=== PATIENT | female | born 1950 | race Caucasian/White ===

== ENCOUNTER 2019-02-24 07:37 | Inpatient (IN) | payer MEDICARE, OTHER ==
[2019-02-21 10:49] VITALS: BMI 38.0
[2019-02-24 08:38] LABS: #Eosinphils 0.1 thou/uL (0.0-0.7); #Monocytes 0.5 thou/uL (0.11-0.59); #Neutrophils 2.4 thou/uL (1.40-6.50); %Basophils 0.7 % (0.0-1.0); %Eosinophils 2.6 % (0.0-10.0); %Lymphocytes 39.7 % (21.0-51.0); %Monocytes 10.1 % (0.0-10.0); %Neutrophils 46.9 % (42.0-75.0); Hemoglobin 13.5 g/dL (12.0-16.0); Mean Corpuscular HGB CONC 33.8 g/dL (32.0-36.0); Mean Corpuscular Hemoglobin 32.6 pg (27.0-31.0); Mean Corpuscular Volume 96.5 fL (78.0-98.0); Mean Platelet Volume 8.3 fL (7.4-10.4); Platelet Count 243 thou/uL (130-400); RBC Distribution Width 10.8 % (11.5-14.5); Red Blood Cell (RBC) Count 4.14 mill/uL (4.20-5.40)
[2019-02-24 08:48] LABS: INR-International Normal Ratio 0.9; PTT 29.7 SEC (22.9-36.1); Prothrombin Time 12.5 SEC (12.0-14.7)
[2019-02-24 09:04] LABS: Anion Gap 13 mmol/L (10-20); BUN (Urea Nitrogen) 20 mg/dL (9.8-20.1); Calc. Creatinine Clearance 85 mL/min (70-130); Calcium 9.4 mg/dL (7.8-10.44); Carbon Dioxide 22 mmol/L (23-31); Chloride 108 mmol/L (98-107); Estimated GFR-MDRD 58; Glucose 95 mg/dL (80-115); Potassium 4.4 mmol/L (3.5-5.1); Sodium 139 mmol/L (136-145)
[2019-02-24] MEDS ORDERED: Sodium Chloride 0.9% 10 ML ONE (09:32)
[2019-02-24] MEDS ORDERED: Fentanyl 100 MCG/2 ML VIAL ONE ×4 (09:52→12:27)
[2019-02-24] MEDS ORDERED: Labetalol HCl 100 MG/20 ML VIAL ONE (11:04)
[2019-02-24] MEDS ORDERED: Promethazine HCl 25 MG/ML VIAL IM PRN ×2 (11:05→11:15)
[2019-02-24] MEDS ORDERED: Ondansetron HCl/PF 4 MG/2 ML Vial IVP PRN (11:05)
[2019-02-24] MEDS ORDERED: Promethazine HCl 25 MG/ML VIAL SLOW IVP PRN (11:05)
[2019-02-24] MEDS ORDERED: Labetalol HCl 100 MG/20 ML VIAL SLOW IVP PRN (11:06)
[2019-02-24] MEDS ORDERED: hydrALAZINE 20 MG/ML VIAL SLOW IVP PRN (11:06)
[2019-02-24] MEDS ORDERED: Milk Of Magnesia 30 ML UDCUP PO PRN (11:15)
[2019-02-24] MEDS ORDERED: Promethazine 25 MG TAB PO PRN (11:15)
[2019-02-24] MEDS ORDERED: Promethazine HCl 12.5 MG SUPP PR PRN (11:15)
[2019-02-24] MEDS ORDERED: diphenhydrAMINE 25 MG CAP PO PRN (11:15)
[2019-02-24] MEDS ORDERED: traMADol HCl 50 MG TAB PO PRN ×2 (11:15)
[2019-02-24] MEDS ORDERED: Mag-Al 1200 mg/1200 mg/30 ML UDCUP PO PRN (11:15)
[2019-02-24] MEDS ORDERED: Ondansetron PF 4 MG/2 ML Vial IVP PRN (11:15)
[2019-02-24] MEDS ORDERED: hydrALAZINE 20 MG/ML VIAL ONE (11:15)
[2019-02-24] MEDS ORDERED: Morphine 4 MG/ML VIAL SLOW IVP PRN (11:15)
[2019-02-24] MEDS ORDERED: Acetaminophen/Codeine 30-300mg Tablet PO PRN (11:15)
[2019-02-24] MEDS ORDERED: diphenhydrAMINE 50 MG/ML VIAL IVP PRN (11:15)
--- NOTE | 2019-02-24 11:42 | OP ---
DATE OF PROCEDURE: 02/24/2019 MEDIA MANAGER: Bayron Horton PA-C PROCEDURE PERFORMED: Anterior cervical diskectomy C5-C6 and C6-C7, interbody arthrodesis, intervertebral biomechanical device, local morselized autograft, demineralized bone matrix, anterior titanium instrumentation C5-C6 and C6-C7. DESCRIPTION OF PROCEDURE: The patient was brought to the operation room and intubated. She was positioned supine with the head in modest extension on a gel-filled donut. An incision was made in the right precervical area and dissected medial to the sternocleidomastoid muscle, identified the anterior cervical spine and the level was confirmed by x-ray. We placed distraction between C5 and C7, debrided the anterior osteophytes and the intervertebral disks, completely decompressed the neural elements. Next, the bony endplates were decorticated for the purpose of arthrodesis and appropriate-sized intervertebral biomechanical PEEK device was brought in the field. It was filled with demineralized bone matrix, local morselized autograft, and tapped in place securely at C5-C6 and C6-C7. Next, an anterior plate was brought into the field and secured to C5, C6, and C7 using two 14-mm screws at each level. The wound was then extensively irrigated and MAC hemostasis was secured and the wound was closed in anatomic layers over drain. Job ID: [id number]
[2019-02-24] MEDS: Sodium Chloride 0.9% 1,000 ML IV SCH ×2 (13:23→18:30)
[2019-02-24] MEDS: Acetaminophen/Codeine 30-300mg Tablet PO PRN ×3 (14:06→23:55)
[2019-02-24] MEDS ORDERED: PROPOFOL 200 MG/20 ML VIAL ONE (14:53)
[2019-02-24] MEDS ORDERED: Ondansetron PF 4 MG/2 ML Vial ONE (14:53)
[2019-02-24] MEDS ORDERED: Rocuronium Bromide 10 MG/ML (10ML VIAL) ONE (14:53)
[2019-02-24] MEDS ORDERED: Lidocaine 1% PF 5 ML VIAL ONE (14:53)
[2019-02-24] MEDS ORDERED: Glycopyrrolate 0.2 MG/ML 5 ML SYRINGE ONE (14:53)
[2019-02-24] MEDS ORDERED: Dexamethasone 20 MG/5 ML VIAL ONE (14:53)
--- NOTE | 2019-02-24 15:20 | EKG ---
Test Reason : PREOP Blood Pressure : / mmHG Vent. Rate : 053 BPM Atrial Rate : 053 BPM P-R Int : 150 ms QRS Dur : 082 ms QT Int : 402 ms P-R-T Axes : 045 014 023 degrees QTc Int : 377 ms Sinus bradycardia with sinus arrhythmia Otherwise normal ECG No previous ECGs available Confirmed by DR. Mikhail BROTHERS ([id number]) on 02/24/2019 3:19:26 PM Referred By: MAXIMILIANO Confirmed By:DR. Mikhail BROTHERS
[2019-02-24] MEDS ORDERED: Lisinopril 20 MG TAB PO SCH (15:45)
[2019-02-24] MEDS: CEFAZOLIN 2 GM in Premix Bag 1 BAG IVPB SCH (18:01)
[2019-02-24] MEDS: tiZANidine HCl 4 MG TAB PO PRN ×2 (18:01→23:56)
--- NOTE | 2019-02-24 21:45 | PDOC.HOSPP ---
- Subjective Encounter Date: 02/24/19 Encounter Time: 19:30 Subjective: Patient seen and examined for med mngt. Pain over the surgical site. No CP or SOB. No new complaints. - Objective Vital Signs & Weight: Vital Signs (12 hours) Temp Pulse Resp BP BP Pulse Ox 02/24/19 20:02 98.4 F 100 16 148/78 H 94 L 02/24/19 20:00 94 L 02/24/19 18:01 93 186/81 H 02/24/19 17:10 153/77 H 02/24/19 15:51 178/82 H 02/24/19 12:45 97.5 F L 80 18 149/78 H 92 L Weight Weight 208 lb I&O: 02/23/19 02/24/19 02/25/19 06:59 06:59 06:59 Intake Total 975 Output Total 40 Balance 935 Result Diagrams: 02/24/19 08:17 02/24/19 08:17 Hospitalist ROS - Review of Systems Respiratory: denies: cough, dry, shortness of breath, hemoptysis, SOB with excertion, pleuritic pain, sputum, wheezing, other Cardiovascular: denies: chest pain, palpitations, orthopnea, paroxysmal noc. dyspnea, edema, light headedness, other - Medication Medications: Active Medications Generic Name Dose Route Start Last Admin Trade Name Freq PRN Reason Stop Dose Admin Acetaminophen/Codeine Phosphate 2 tab 02/24/19 11:15 02/24/19 19:13 Tylenol #3 PO 2 tab Q3H PRN Administration PAIN (4-6) Hydralazine HCl 10 mg 02/24/19 11:06 02/24/19 18:01 Apresoline SLOW IVP 10 mg Q15MIN PRN Administration Blood Pressure Sodium Chloride 1,000 mls @ 75 mls/hr 02/24/19 11:15 02/24/19 18:30 Normal Saline 0.9% IV 1,000 mls .[id number] ANDREAS Administration Cefazolin Sodium/Dextrose 2 gm 50 mls @ 100 mls/hr 02/24/19 17:00 02/24/19 18 :01 / Device IVPB 50 mls Q8H ANDREAS Administration Tizanidine HCl 4 mg 02/24/19 11:15 02/24/19 18:01 Zanaflex PO 4 mg Q6H PRN Administration MUSCLE SPASM - Exam General Appearance: NAD Heart: RRR, no rubs Respiratory: CTAB, no ronchi Gastrointestinal: soft, non-tender, no palpable masses Extremities: 2+ LE edema Hosp A/P (1) HTN (hypertension) Code(s): I10 - ESSENTIAL (PRIMARY) HYPERTENSION Status: Acute (2) Neuropathy Code(s): G62.9 - POLYNEUROPATHY, UNSPECIFIED Status: Acute (3) Obesity (BMI 30-39.9) Code(s): E66.9 - OBESITY, UNSPECIFIED Status: Acute (4) Statin intolerance Code(s): Z78.9 - OTHER SPECIFIED HEALTH STATUS Status: Acute (5) Venous insufficiency Code(s): I87.2 - VENOUS INSUFFICIENCY (CHRONIC) (PERIPHERAL) Status: Acute (6) Chronic diastolic heart failure Code(s): I50.32 - CHRONIC DIASTOLIC (CONGESTIVE) HEART FAILURE Status: Acute (7) CAD (coronary artery disease) Code(s): I25.10 - ATHSCL HEART DISEASE OF [place] CORONARY ARTERY W/O ANG PCTRS Status: Acute (8) Diverticulosis Code(s): K57.90 - DVRTCLOS OF INTEST, PART UNSP, W/O PERF OR ABSCESS W/O BLEED Status: Acute - Plan plan discussed w/ family, DVT proph w/SCDs Cont Lisinopril ASA/Plavix on hold per NSG Full code. DPOA - spouse
[2019-02-25] MEDS: CEFAZOLIN 2 GM in Premix Bag 1 BAG IVPB SCH
[2019-02-25] MEDS ORDERED: Dexamethasone 4 mg/ml Vial SLOW IVP SCH (06:00)
--- NOTE | 2019-02-25 06:09 | PRG ---
DATE OF SERVICE: 02/25/2019 SUBJECTIVE: The patient is a 68-year-old female, status post C5-C7 ACDF. Following the surgery, she was transitioned to the Med/Surg floor. She has had difficulty with postop dysphagia since the surgery. She is able to tolerate a small amount of p.o. liquids, but has been unable to thus far tolerate solid food. She does have a DA drain in place and only had 10 mL of serosanguineous fluid out overnight. Her pain is otherwise well controlled with p.o. medications, she is voiding appropriately and ambulating back and forth from the bathroom. OBJECTIVE: On exam this morning, the patient is sitting up, awake, alert, in no acute distress. She has free active range of motion of all extremities, no focal motor weakness. Her incision is clean, dry, intact. It is soft. She has a small amount of serosanguineous fluid in the bulb. PLAN: We will plan to treat the dysphagia with 6 mg of IV Decadron once. I have also ordered Cepacol lozenges. We will continue to advance her diet today. I anticipate that this will improve with time. We will also continue to mobilize the patient and I anticipate home in the next day or 2. Job ID: [id number]
[2019-02-25] MEDS: Sodium Chloride 0.9% 1,000 ML IV SCH (08:43)
[2019-02-25] MEDS: Cepastat Lozenges 1 LOZ PO PRN ×3 (10:03→17:45)
[2019-02-25] MEDS ORDERED: Melatonin 3 MG TAB PO PRN (13:32)
[2019-02-25] MEDS: Gabapentin 300 MG CAP PO SCH (16:51)
[2019-02-25] MEDS: Lisinopril 20 MG TAB PO SCH (20:49)
[2019-02-25] MEDS ORDERED: Gabapentin 400 MG CAP PO SCH (21:00)
--- NOTE | 2019-02-25 21:47 | PDOC.HOSPP ---
- Subjective Encounter Date: 02/25/19 Encounter Time: 12:00 Subjective: Patient seen and examined for med mngt.Difficulty swallowing. No fever/chills or CP. No new complaints. No overnight events - Objective Vital Signs & Weight: Vital Signs (12 hours) Temp Pulse Resp BP BP BP Pulse Ox 02/25/19 20:49 150/71 H 02/25/19 20:00 98.5 F 82 16 150/71 H 96 02/25/19 15:38 98.1 F 79 15 148/77 H 94 L 02/25/19 11:54 97.4 F L 76 18 148/71 H 97 Weight Weight 208 lb I&O: 02/24/19 02/25/19 02/26/19 06:59 06:59 06:59 Intake Total 975 1750 Output Total 50 Balance 925 1750 Result Diagrams: 02/24/19 08:17 02/24/19 08:17 Hospitalist ROS - Review of Systems Cardiovascular: denies: chest pain, palpitations, orthopnea, paroxysmal noc. dyspnea, edema, light headedness, other Gastrointestinal: denies: nausea, vomitting, abdominal pain, diarrhea, constipation, melena, hematochezia, other - Medication Medications: Active Medications Generic Name Dose Route Start Last Admin Trade Name Freq PRN Reason Stop Dose Admin Acetaminophen/Codeine Phosphate 2 tab 02/24/19 11:15 02/24/19 23:55 Tylenol #3 PO 2 tab Q3H PRN Administration PAIN (4-6) Gabapentin 300 mg 02/25/19 17:00 02/25/19 16:51 Neurontin PO 300 mg BID-WM ANDREAS Administration Gabapentin 1,200 mg 02/25/19 21:00 02/25/19 20:48 Neurontin PO 1,200 mg HS ANDREAS Administration Hydralazine HCl 10 mg 02/24/19 11:06 02/24/19 18:01 Apresoline SLOW IVP 10 mg Q15MIN PRN Administration Blood Pressure Sodium Chloride 1,000 mls @ 75 mls/hr 02/24/19 11:15 02/25/19 08:43 Normal Saline 0.9% IV 1,000 mls .[id number] ANDREAS Administration Lisinopril 20 mg 02/25/19 21:00 02/25/19 20:49 Zestril PO 20 mg BID ANDREAS Administration Morphine Sulfate 4 mg 02/24/19 11:15 02/25/19 12:56 Morphine SLOW IVP 4 mg Q1H PRN Administration SEVERE BREAKTHROUGH PAIN Sodium Chloride 10 ml 02/24/19 21:00 02/25/19 08:43 Flush - Normal Saline IVF Not Given Q12HR ANDREAS Throat Lozenges 1 jac 02/25/19 05:53 02/25/19 17:45 Cepastat Lozenges PO 1 jac PRN PRN Administration Sore Throat Tizanidine HCl 4 mg 02/24/19 11:15 02/24/19 23:56 Zanaflex PO 4 mg Q6H PRN Administration MUSCLE SPASM - Exam General Appearance: NAD Heart: RRR, no rubs Respiratory: CTAB, no rales Gastrointestinal: soft, normal bowel sounds Hosp A/P (1) HTN (hypertension) Code(s): I10 - ESSENTIAL (PRIMARY) HYPERTENSION Status: Acute (2) Neuropathy Code(s): G62.9 - POLYNEUROPATHY, UNSPECIFIED Status: Acute (3) Obesity (BMI 30-39.9) Code(s): E66.9 - OBESITY, UNSPECIFIED Status: Acute (4) Statin intolerance Code(s): Z78.9 - OTHER SPECIFIED HEALTH STATUS Status: Acute (5) Venous insufficiency Code(s): I87.2 - VENOUS INSUFFICIENCY (CHRONIC) (PERIPHERAL) Status: Acute (6) Chronic diastolic heart failure Code(s): I50.32 - CHRONIC DIASTOLIC (CONGESTIVE) HEART FAILURE Status: Acute (7) CAD (coronary artery disease) Code(s): I25.10 - ATHSCL HEART DISEASE OF [place] CORONARY ARTERY W/O ANG PCTRS Status: Acute (8) Diverticulosis Code(s): K57.90 - DVRTCLOS OF INTEST, PART UNSP, W/O PERF OR ABSCESS W/O BLEED Status: Acute - Plan PT/OT, incentive spirometry, DVT proph w/SCDs Resume Gabapentin at home dose Cont Lisinopril Cont other meds as above Will follow PRN Received IV Dexamethasone today
[2019-02-25] MEDS ORDERED: Acetaminophen 500 MG TAB PO PRN (22:08)
[2019-02-26] MEDS: Sodium Chloride 0.9% 1,000 ML IV SCH (03:06)
[2019-02-26] MEDS: Acetaminophen/Codeine 30-300mg Tablet PO PRN (05:42)
[2019-02-26] MEDS: Cepastat Lozenges 1 LOZ PO PRN (05:44)
[2019-02-26 08:02] VITALS: BP 150/77; TEMP 98
[2019-02-26] MEDS: Lisinopril 20 MG TAB PO SCH (08:30)
[2019-02-26] MEDS: Gabapentin 300 MG CAP PO SCH (08:30)
--- NOTE | 2019-02-27 03:48 | DIS ---
DATE OF ADMISSION: 02/24/2019 DATE OF DISCHARGE: 02/26/2019 HOSPITAL COURSE: The patient is a 68-year-old female, status post C5-C7 ACDF. Following her surgery, she was transitioned to the Med/Surg floor, where her pain was well controlled with p.o. medications. She did have some significant dysphagia and this was treated with 6 mg of IV Decadron with improvement. Following this, the patient was able to tolerate a regular p.o. diet without any difficulty. She has been up ambulating back and forth to the bathroom and in the halls and urinating without any difficulty. On exam this morning, the patient is awake, alert, in no acute distress. She has free active range of motion of all extremities. No focal motor weakness. No reflex asymmetry. Her incision is clean, dry, and intact. We will plan to dismiss the patient to home. I have discussed home care and precautions. The patient has been provided with scripts for Tylenol No. 3 and Zanaflex. She has been instructed to hold her aspirin x1 week and her Plavix x2 weeks postoperatively as well. We will see in followup in 2 weeks. Job ID: [id number]
== END 2019-02-26 11:00 | disposition home or self-care (01) | DRG 29 ==
LOC: SDC 07:37 → SURG A 12:52
PROVIDERS: ADMIT Neurological Surgery; ATTEND Neurological Surgery
PROC: 0RG20A0 Fusion of 2 or more Cervical Vertebral Joints with Interbody Fusion Device, Anterior Approach, Anterior Column, Open Approach (ICD-10-PCS; principal; 2019-02-24)
PROC: 0RB30ZZ Excision of Cervical Vertebral Disc, Open Approach (ICD-10-PCS; 2019-02-24)
DX: M54.12 Radiculopathy, cervical region (principal); I50.32 Chronic diastolic (congestive) heart failure; G62.9 Polyneuropathy, unspecified; I87.2 Venous insufficiency (chronic) (peripheral); E78.5 Hyperlipidemia, unspecified; M19.90 Unspecified osteoarthritis, unspecified site; I11.0 Hypertensive heart disease with heart failure; I25.10 Atherosclerotic heart disease of native coronary artery without angina pectoris; K57.90 Diverticulosis of intestine, part unspecified, without perforation or abscess without bleeding; E66.9 Obesity, unspecified; R13.19 Other dysphagia; Z68.38 Body mass index [BMI] 38.0-38.9, adult; Z88.5 Allergy status to narcotic agent; Z88.8 Allergy status to other drugs, medicaments and biological substances
CPT/HCPCS: 36415; 76000; 80048; 85025; 85610; 85730; 93005; 93010; C1713; C1776; J0360; J0690; J1100; J2001; J2270; J2405; J2704; J3010; J3490

== ENCOUNTER 2019-03-12 11:31 | Outpatient (CLI) | payer MEDICARE, OTHER ==
--- NOTE | 2019-03-12 12:09 | RAD ---
Cervical spine 5 views: 03/12/2019 COMPARISON: None HISTORY: Cervical radiculopathy, prior surgery FINDINGS: Open-mouth odontoid view demonstrates a normal-appearing dens. There is mild narrowing of t he atlantoaxial interspace and mild left-sided narrowing of the articulation of the lateral mass of C1 and body of C2. Anterior discectomy and fusion hardware is present at C5-6/C6-7. No evidence for hardware failure. No anterolisthesis or retrolisthesis is noted. There is prominent facet and uncovertebral osteophyte formation within the mid cervical spine, left g reater than right, most prominent at the C4-5 level. IMPRESSION: Postoperative and degenerative change within the cervical spine as detailed above.
== END 2019-03-12 11:32 | disposition home or self-care (01) ==
LOC: TBSIIMAG 11:31
PROVIDERS: ATTEND Neurological Surgery
DX: M47.22 Other spondylosis with radiculopathy, cervical region (principal); Z98.890 Other specified postprocedural states
CPT/HCPCS: 72040

== ENCOUNTER 2019-07-07 06:00 | Inpatient (IN) | payer MEDICARE, OTHER ==
[2019-07-04 12:19] VITALS: BMI 36.6
[2019-07-07 06:40] LABS: #Basophils 0.1 thou/uL (0.0-0.2); #Eosinphils 0.2 thou/uL (0.0-0.7); #Lymphocytes 2.8 thou/uL (1.20-3.40); #Monocytes 0.5 thou/uL (0.11-0.59); #Neutrophils 2.1 thou/uL (1.40-6.50); %Basophils 1.5 % (0.0-1.0); %Lymphocytes 49.8 % (21.0-51.0); %Monocytes 8.8 % (0.0-10.0); %Neutrophils 35.9 % (42.0-75.0); Hemoglobin 13.8 g/dL (12.0-16.0); Mean Corpuscular HGB CONC 33.6 g/dL (32.0-36.0); Mean Corpuscular Hemoglobin 31.7 pg (27.0-31.0); Mean Corpuscular Volume 94.5 fL (78.0-98.0); Mean Platelet Volume 7.9 fL (7.4-10.4); Platelet Count 280 thou/uL (130-400); Red Blood Cell (RBC) Count 4.36 mill/uL (4.20-5.40); White Blood Cell (WBC) Count 5.7 thou/uL (4.8-10.8)
[2019-07-07 07:01] LABS: Anion Gap 14 mmol/L (10-20); BUN (Urea Nitrogen) 19 mg/dL (9.8-20.1); Calc. Creatinine Clearance 90 mL/min (70-130); Calcium 9.8 mg/dL (7.8-10.44); Carbon Dioxide 23 mmol/L (23-31); Chloride 107 mmol/L (98-107); Estimated GFR-MDRD 65; Glucose 106 mg/dL (80-115); Potassium 4.3 mmol/L (3.5-5.1); Sodium 140 mmol/L (136-145)
[2019-07-07] MEDS ORDERED: Fentanyl 100 MCG/2 ML VIAL ONE ×2 (07:03→09:03)
[2019-07-07] MEDS ORDERED: Midazolam HCl 2 mg/2 ml Vial ONE (07:12)
[2019-07-07] MEDS ORDERED: Morphine 4 MG/ML VIAL ONE (09:20)
[2019-07-07] MEDS ORDERED: Morphine 2 MG/ML SYRINGE ONE ×4 (09:32→10:17)
[2019-07-07] MEDS ORDERED: HYDROmorphone 2 MG/ML VIAL SLOW IVP PRN ×2 (09:34→11:40)
[2019-07-07] MEDS ORDERED: Promethazine HCl 25 MG/ML VIAL IM/IV PRN ×2 (09:34→11:40)
[2019-07-07] MEDS ORDERED: Morphine Sulfate 2 MG/ML SYRINGE SLOW IVP PRN ×2 (09:34→11:40)
[2019-07-07] MEDS ORDERED: Ondansetron HCl/PF 4 MG/2 ML Vial IVP PRN ×2 (09:34→11:40)
[2019-07-07] MEDS ORDERED: Non-Formulary Medication 1 EACH PO PRN ×2 (09:34→11:40)
[2019-07-07] MEDS ORDERED: PACU-Morphine 4MG/ML VIAL SLOW IVP PRN ×2 (09:34→11:40)
[2019-07-07] MEDS ORDERED: HYDROcodone/Acetaminophen 10/325 mg Tablet PO PRN ×2 (09:59)
[2019-07-07] MEDS ORDERED: traMADol HCl 50 MG TAB PO PRN ×2 (09:59)
[2019-07-07] MEDS ORDERED: diphenhydrAMINE 25 MG CAP PO PRN (09:59)
[2019-07-07] MEDS ORDERED: Milk Of Magnesia 30 ML UDCUP PO PRN (09:59)
[2019-07-07] MEDS ORDERED: Morphine 4 MG/ML VIAL SLOW IVP PRN (09:59)
[2019-07-07] MEDS ORDERED: Promethazine HCl 25 MG/ML VIAL IM PRN (09:59)
[2019-07-07] MEDS ORDERED: Promethazine 25 MG TAB PO PRN (09:59)
[2019-07-07] MEDS ORDERED: Ondansetron PF 4 MG/2 ML Vial IM PRN (09:59)
[2019-07-07] MEDS ORDERED: diphenhydrAMINE 50 MG/ML VIAL IVP PRN (09:59)
[2019-07-07] MEDS ORDERED: Mag-Al 1200 mg/1200 mg/30 ML UDCUP PO PRN (09:59)
[2019-07-07] MEDS ORDERED: Promethazine HCl 12.5 MG SUPP PR PRN (09:59)
[2019-07-07] MEDS ORDERED: Nitroglycerin 0.4 MG TAB (25 Tab Bottle) SL PRN (10:05)
[2019-07-07] MEDS ORDERED: PHENYLEPHRINE-NS 100 MCG/ML 10 ML SYRINGE ONE (10:11)
[2019-07-07] MEDS ORDERED: Rocuronium Bromide 10 MG/ML (10ML VIAL) ONE (10:11)
[2019-07-07] MEDS ORDERED: Ondansetron PF 4 MG/2 ML Vial ONE (10:11)
[2019-07-07] MEDS ORDERED: Lidocaine 1% PF 5 ML VIAL ONE (10:11)
[2019-07-07] MEDS ORDERED: Acetaminophen 325 MG TAB PO PRN (10:11)
[2019-07-07] MEDS ORDERED: Glycopyrrolate 0.2 MG/ML 5 ML SYRINGE ONE (10:11)
[2019-07-07] MEDS ORDERED: PROPOFOL 200 MG/20 ML VIAL ONE (10:11)
[2019-07-07] MEDS ORDERED: Melatonin 3 MG TAB PO PRN (10:16)
[2019-07-07] MEDS ORDERED: Morphine 2 MG/ML SYRINGE SLOW IVP PRN (10:30)
--- NOTE | 2019-07-07 10:56 | OP ---
DATE OF PROCEDURE: 07/07/2019 MUSHROOM GROWER: Maliha Amanda PA-C PROCEDURES PERFORMED: L4-L5 laminectomy, posterolateral arthrodesis, pedicle screw instrumentation L4-L5, demineralized bone matrix, and local morselized autograft. DESCRIPTION OF PROCEDURE: The patient was brought to the operating room and intubated. She was rolled in a prone position on gel-filled chest rolls. An incision was made exposing L4 and L5 bilaterally and the level was confirmed by x-ray. Exposure was difficult given her very large body habitus. Modest bilateral L4-L5 laminectomy was performed for the purpose of decompression. Then, pedicle screws were placed at L4 and L5 bilaterally using lateral fluoroscopic guidance. The fifi was secured between the screws, connected by nuts, which were final tightened. The wound was then extensively irrigated. MAC hemostasis was secured. A combination of demineralized bone matrix and local morselized autograft were laid over the lamina and posterolateral surfaces for the purpose of arthrodesis. Vancomycin powder was applied and the wound was then closed in anatomic layers. Job ID: [id number]
[2019-07-07] MEDS: Cyclobenzaprine 10 MG TAB PO PRN (11:43)
[2019-07-07] MEDS: Sodium Chloride 0.9% 1,000 ML IV SCH ×2 (11:47→17:24)
[2019-07-07] MEDS ORDERED: Acetaminophen/Codeine 30-300mg Tablet PO PRN (13:18)
[2019-07-07] MEDS: Acetaminophen/Codeine 30-300mg Tablet PO PRN ×2 (13:31→18:32)
[2019-07-07] MEDS: CEFAZOLIN 2 GM in Premix Bag 1 BAG IVPB SCH ×2 (17:23→23:56)
[2019-07-07] MEDS: Gabapentin 300 MG CAP PO SCH (19:59)
[2019-07-07] MEDS: Lisinopril 20 MG TAB PO SCH (19:59)
[2019-07-07] MEDS ORDERED: Gabapentin 300 MG CAP PO SCH (21:00)
[2019-07-08] MEDS: Acetaminophen/Codeine 30-300mg Tablet PO PRN (05:15)
--- NOTE | 2019-07-08 06:23 | PDOC.HOSPP ---
- Subjective Encounter Date: 07/07/19 Encounter Time: 15:00 Subjective: Patient seen and examined for med mngt. Pain controlled. No new focal deficits. No new complaints. No overnight events - Objective Vital Signs & Weight: Vital Signs (12 hours) Temp Pulse Resp BP BP Pulse Ox 07/08/19 05:10 99.2 F 07/08/19 03:04 100.0 F H 86 16 111/68 92 L 07/07/19 23:04 98.2 F 80 16 103/62 94 L 07/07/19 19:59 130/81 07/07/19 19:12 97.5 F L 70 16 130/81 94 L Weight Weight 200 lb I&O: 07/06/19 07/07/19 07/08/19 06:59 06:59 06:59 Intake Total 480 Balance 480 Result Diagrams: 07/07/19 06:31 07/07/19 06:31 EKG Reviewed by me: Yes (SR) Hospitalist ROS - Review of Systems Respiratory: denies: cough, dry, shortness of breath, hemoptysis, SOB with excertion, pleuritic pain, sputum, wheezing, other Cardiovascular: denies: chest pain, palpitations, orthopnea, paroxysmal noc. dyspnea, edema, light headedness, other Gastrointestinal: denies: nausea, vomiting, abdominal pain, diarrhea, constipation, melena, hematochezia, other - Medication Medications: Active Medications Generic Name Dose Route Start Last Admin Trade Name Freq PRN Reason Stop Dose Admin Acetaminophen/Codeine Phosphate 2 tab 07/07/19 13:18 07/08/19 05:15 Tylenol #3 PO 2 tab Q4H PRN Administration Pain (7-10) Cyclobenzaprine HCl 10 mg 07/07/19 09:59 07/07/19 11:43 Flexeril PO 10 mg Q8H PRN Administration Muscle Spasm Gabapentin 300 mg 07/07/19 21:00 07/07/19 19:59 Neurontin PO Not Given BID ANDERAS Gabapentin 1,200 mg 07/07/19 21:00 07/07/19 19:59 Neurontin PO 1,200 mg HS ANDREAS Administration Sodium Chloride 1,000 mls @ 75 mls/hr 07/07/19 09:59 07/07/19 17:24 Normal Saline 0.9% IV 1,000 mls .[id number] ANDREAS Administration Lisinopril 20 mg 07/07/19 21:00 07/07/19 19:59 Zestril PO 20 mg BID ANDREAS Administration Ondansetron HCl 4 mg 07/07/19 09:59 07/07/19 14:21 Zofran IM 4 mg Q24H PRN Administration Nausea/Vomiting Promethazine HCl 12.5 mg 07/07/19 09:59 07/07/19 17:25 Phenergan PO 12.5 mg Q4H PRN Administration Nausea/Vomiting Sodium Chloride 10 ml 07/07/19 21:00 07/07/19 19:59 Flush - Normal Saline IVF Not Given Q12HR ANDREAS Tramadol HCl 100 mg 07/07/19 09:59 07/07/19 11:43 Ultram PO 100 mg Q6H PRN Administration PAIN (4-6) - Exam General Appearance: NAD Heart: RRR, no gallops Respiratory: no wheezes, no rales, no ronchi Gastrointestinal: non-tender, non-distended, normal bowel sounds Extremities: 1+ LE edema Hosp A/P - Plan DVT proph w/SCDs HTN CKD 2 Chronic Venous Stasis Obesity BMI 36 Peripheral neuropathy s/p Lami by Dr. Bender. Plan: Restart lisinopril Cont Gabapentin Continue PT/OT DVT prophylaxis. Full Code DPOA family.
[2019-07-08 07:30] VITALS: TEMP 98.8
[2019-07-08] MEDS: Gabapentin 300 MG CAP PO SCH (08:07)
[2019-07-08] MEDS: Cyclobenzaprine 10 MG TAB PO PRN (08:07)
[2019-07-08] MEDS: Lisinopril 20 MG TAB PO SCH (08:08)
[2019-07-08 08:09] VITALS: BP 101/66
[2019-07-08] MEDS ORDERED: PREVAGEN PO SCH (09:00)
[2019-07-08] MEDS ORDERED: Calcium Carbonate + Vit D 1 TAB PO SCH (09:00)
[2019-07-08] MEDS ORDERED: Lisinopril 20 MG TAB PO SCH (21:00)
--- NOTE | 2019-07-09 15:09 | DIS ---
DATE OF ADMISSION: 07/07/2019 DATE OF DISCHARGE: 07/08/2019 HOSPITAL COURSE: The patient is a 68-year-old female, who underwent L4-L5 decompression and fusion on 07/07/2019. Following the surgery, she was transitioned to the Med/Surg floor, where her pain has been well controlled with p.o. medications, she did develop some nausea initially, however, this improved with treatment with Zofran. She is now tolerating a regular diet, she is voiding appropriately, ambulating easily in the hallways. On exam this morning, she is awake, alert, in no acute distress. She has free active range of motion of all extremities. No focal motor weakness. Incision is clean, dry, and intact. PLAN: We will plan to dismiss the patient to home. I have discussed home care precautions. We will follow up with the patient in 2 weeks. Job ID: [id number]
== END 2019-07-08 11:16 | disposition home or self-care (01) | DRG 460 ==
LOC: SDC 06:00 → SURG A 10:49
PROVIDERS: ADMIT Neurological Surgery; ATTEND Neurological Surgery
PROC: 0SG0071 Fusion of Lumbar Vertebral Joint with Autologous Tissue Substitute, Posterior Approach, Posterior Column, Open Approach (ICD-10-PCS; principal; 2019-07-07)
DX: M54.16 Radiculopathy, lumbar region (principal); E78.5 Hyperlipidemia, unspecified; G43.909 Migraine, unspecified, not intractable, without status migrainosus; I73.9 Peripheral vascular disease, unspecified; M19.90 Unspecified osteoarthritis, unspecified site; E66.9 Obesity, unspecified; I12.9 Hypertensive chronic kidney disease with stage 1 through stage 4 chronic kidney disease, or unspecified chronic kidney disease; N18.2 Chronic kidney disease, stage 2 (mild); I87.8 Other specified disorders of veins; G62.9 Polyneuropathy, unspecified; I25.2 Old myocardial infarction; Z95.5 Presence of coronary angioplasty implant and graft; Z79.899 Other long term (current) drug therapy; Z88.8 Allergy status to other drugs, medicaments and biological substances; Z88.5 Allergy status to narcotic agent; Z68.38 Body mass index [BMI] 38.0-38.9, adult
CPT/HCPCS: 76000; 80048; 85025; C1713; C1768; J0690; J2250; J2270; J2405; J3010; J3370; J3490; Q0169

== ENCOUNTER 2019-07-28 10:12 | Outpatient (CLI) | payer MEDICARE, OTHER ==
--- NOTE | 2019-07-28 11:03 | RAD ---
LUMBAR SPINE SERIES 2 VIEWS: Date: 07/28/2019 HISTORY: Follow-up of surgery. FINDINGS: Bilateral pedicle screws have been placed at L4-5. Vertebral bodies are normal in height. There is so me mild disc narrowing at L3-4 and minimal disc narrowing at L4-5, and very minimal spondylolisthesis . L5-S1 level is unremarkable. Atherosclerotic changes are noted. Pedicles are intact. IMPRESSION: Postoperative changes of the spine. POS: TPC
== END 2019-07-28 10:13 | disposition home or self-care (01) ==
LOC: TBSIIMAG 10:12
PROVIDERS: ATTEND Neurological Surgery
DX: M54.16 Radiculopathy, lumbar region (principal); Z98.890 Other specified postprocedural states
CPT/HCPCS: 72100

== ENCOUNTER 2020-04-01 08:02 | Outpatient (CLI) | payer MEDICARE, OTHER ==
[2020-04-01 16:26] LABS: #Eosinphils 0.2 thou/uL (0.0-0.7); #Monocytes 0.5 thou/uL (0.11-0.59); %Eosinophils 4.9 % (0.0-10.0); %Lymphocytes 41.6 % (21.0-51.0); %Monocytes 10.9 % (0.0-10.0); %Neutrophils 41.6 % (42.0-75.0); Mean Corpuscular HGB CONC 33.7 g/dL (32.0-36.0); Mean Corpuscular Hemoglobin 32.8 pg (27.0-31.0); Mean Corpuscular Volume 97.3 fL (78.0-98.0); Mean Platelet Volume 8.4 fL (7.4-10.4); Platelet Count 270 thou/uL (130-400); RBC Distribution Width 11.4 % (11.5-14.5); Red Blood Cell (RBC) Count 4.26 mill/uL (4.20-5.40); White Blood Cell (WBC) Count 4.8 thou/uL (4.8-10.8)
[2020-04-01 16:40] LABS: INR-International Normal Ratio 0.9; Prothrombin Time 12.3 sec (12.0-14.7)
[2020-04-01 17:30] LABS: Anion Gap 15 mmol/L (10-20); BUN (Urea Nitrogen) 11 mg/dL (9.8-20.1); Calc. Creatinine Clearance 0 mL/min (70-130); Calcium 9.5 mg/dL (7.8-10.44); Carbon Dioxide 24 mmol/L (23-31); Chloride 107 mmol/L (98-107); Estimated GFR-MDRD 68; Glucose 83 mg/dL (80-115); Potassium 4.7 mmol/L (3.5-5.1); Sodium 141 mmol/L (136-145)
[2020-04-02 12:38] LABS: SARS-CoV-2 MS2 Positive; SARS-CoV-2 N Gene Negative; SARS-CoV-2 S Gene Negative; SARS-CoV-2 by NAA Not Detected (NotDetected); SARS-CoV-2 orf1ab Negative
--- NOTE | 2020-04-03 16:52 | EKG ---
Test Reason : PREOP Blood Pressure : / mmHG Vent. Rate : 051 BPM Atrial Rate : 051 BPM P-R Int : 164 ms QRS Dur : 074 ms QT Int : 416 ms P-R-T Axes : 050 054 043 degrees QTc Int : 383 ms Sinus bradycardia with sinus arrhythmia Otherwise normal ECG No previous ECGs available Confirmed by DR. Mendel WEEKS ([id number]) on 04/03/2020 4:51:50 PM Referred By: Génesis VIERA Confirmed By:DR. Mendel WEEKS
== END 2020-04-01 08:03 | disposition home or self-care (01) ==
LOC: LABBT 08:02
PROVIDERS: ATTEND Neurological Surgery
DX: Z01.818 Encounter for other preprocedural examination (principal); Z20.828 Contact with and (suspected) exposure to other viral communicable diseases
CPT/HCPCS: 80048; 85025; 85610; 93005; U0003; 87635; 93010

== ENCOUNTER 2020-04-05 05:57 | Inpatient (IN) | payer MEDICARE, OTHER ==
[2020-04-02 11:23] VITALS: BMI 38.4
[2020-04-05] MEDS ORDERED: Sodium Chloride 0.9% 10 ML ONE (06:32)
[2020-04-05] MEDS ORDERED: Fentanyl 250 MCG/5 ML VIAL ONE (06:46)
[2020-04-05] MEDS ORDERED: Midazolam HCl 2 mg/2 ml Vial ONE (06:46)
[2020-04-05] MEDS ORDERED: SUGAMMADEX SODIUM 200 MG/2 ML VIAL ONE (08:12)
--- NOTE | 2020-04-05 08:47 | OP ---
DATE OF PROCEDURE: 04/05/2020 MEN'S FURNISHINGS SALESPERSON: Vasiliy. PROCEDURES PERFORMED: Removal of hardware, L4-L5; exploration of spinal fusion, L4-L5; posterolateral arthrodesis, L4-L5; BMP cancellous bone chips. DESCRIPTION OF PROCEDURE: The patient was brought to the operating room and intubated. She was rolled into prone position on gel-filled chest rolls. The previous incision was reopened and the previous hardware was identified. The screws on the right at L4-L5 as well as nuts and fifi were removed without difficulty. The fusion was explored and did not appear to be solid on the right. The posterolateral surfaces were prepared for the purpose of arthrodesis and a combination of BMP on Gelfoam with cancellous bone chips was laid in the right lateral recess for the purpose of arthrodesis. The wound was extensively irrigated with bacitracin irrigation and immaculate hemostasis was secured. Vancomycin powder was applied and the wound was closed in anatomic layers. Job ID: [id number]
[2020-04-05] MEDS ORDERED: Fentanyl 100 MCG/2 ML VIAL ONE ×2 (08:50→09:16)
[2020-04-05] MEDS ORDERED: Promethazine HCl 25 MG/ML VIAL IM PRN (11:15)
[2020-04-05] MEDS ORDERED: diphenhydrAMINE 25 MG CAP PO PRN (11:15)
[2020-04-05] MEDS ORDERED: Morphine 2 MG/ML VIAL SLOW IVP PRN (11:15)
[2020-04-05] MEDS ORDERED: diphenhydrAMINE 50 MG/ML VIAL IVP PRN (11:15)
[2020-04-05] MEDS ORDERED: Milk Of Magnesia 30 ML UDCUP PO PRN (11:15)
[2020-04-05] MEDS ORDERED: Promethazine HCl 12.5 MG SUPP PR PRN (11:15)
[2020-04-05] MEDS ORDERED: tiZANidine HCl 4 MG TAB PO PRN (11:15)
[2020-04-05] MEDS ORDERED: Acetaminophen/Codeine 30-300mg Tablet PO PRN ×2 (11:15)
[2020-04-05] MEDS ORDERED: Ondansetron PF 4 MG/2 ML Vial IM PRN (11:15)
[2020-04-05] MEDS ORDERED: Promethazine 25 MG TAB PO PRN (11:15)
[2020-04-05] MEDS ORDERED: traMADol HCl 50 MG TAB PO PRN ×2 (11:15)
[2020-04-05] MEDS ORDERED: Bisacodyl 10 MG SUPP PR PRN (11:15)
[2020-04-05] MEDS: Morphine 4 MG/ML VIAL SLOW IVP PRN ×2 (11:37→18:14)
[2020-04-05] MEDS: Sodium Chloride 0.9% 1,000 ML IV SCH (11:42)
[2020-04-05] MEDS ORDERED: Succinylcholine Chloride 20 MG/ML 10 ml SYRINGE FS ONE (14:09)
[2020-04-05] MEDS ORDERED: PHENYLEPHRINE-NS 100 MCG/ML 10 ML SYRINGE ONE (14:09)
[2020-04-05] MEDS ORDERED: EPHEDRINE 25 MG/5 ML SYRINGE ONE (14:09)
[2020-04-05] MEDS ORDERED: Glycopyrrolate 0.2 MG/ML 5 ML SYRINGE ONE (14:09)
[2020-04-05] MEDS ORDERED: PROPOFOL 200 MG/20 ML VIAL ONE (14:09)
[2020-04-05] MEDS ORDERED: Ondansetron PF 4 MG/2 ML Vial ONE (14:09)
[2020-04-05] MEDS ORDERED: Rocuronium Bromide 10 MG/ML (10ML VIAL) ONE (14:09)
[2020-04-05] MEDS ORDERED: Dexamethasone 20 MG/5 ML VIAL ONE (14:09)
[2020-04-05] MEDS: CEFAZOLIN 2 GM in Premix Bag 1 BAG IVPB SCH ×2 (14:43→22:52)
--- NOTE | 2020-04-05 15:51 | HP ---
PRIMARY CARE PROVIDER: Out of town in [place]. HISTORY OF PRESENT ILLNESS: The patient admitted for back pain, for revision of previous surgery. Postoperatively, she has had a little drainage from her wound, which has been re-bandaged. She has had no chest pain, shortness of breath, fevers, sweats, chills, nausea, or dizziness. PAST MEDICAL HISTORY: Pertinent for hypertension, coronary artery disease. HOME MEDICINES: 1. Aspirin 81 mg a day. 2. Lyrica 100 mg 3 times a day. 3. Lisinopril 20 mg p.o. b.i.d. 4. Plavix 75 mg a day. ALLERGIES: STATINS, HYDROCODONE. PAST SURGICAL HISTORY: C-spine surgery, L-spine surgery x2 including today's surgery, cataract surgery on the left. She has had cardiac cath x2 with the stent done twice, one in 2005, one in 2007. FAMILY HISTORY: Minimal, but she does note mother of colon cancer. SOCIAL HISTORY: She is . No tobacco. No alcohol. No illicit drugs. REVIEW OF SYSTEMS: GENERAL: No headaches, dizziness, fainting. EYES: No double vision, blurred vision, flashing lights. She has planned cataract surgery on the right. EAR, NOSE, and THROAT: No ear pain or drainage. No nasal bleeding. No trouble swallowing. CARDIAC: No chest pain, orthopnea, or paroxysmal nocturnal dyspnea. RESPIRATION: No cough, wheezing, or asthma. GASTROINTESTINAL: No nausea, vomiting, diarrhea, constipation. GENITOURINARY: No hematuria, dysuria, nocturia. MUSCULOSKELETAL: Always swell. She has a history of mild lymphedema. NEUROLOGICAL: No strokes, seizures, or focal weakness. PSYCHIATRIC: No anxiety or depression. SKIN: No bruising, bleeding, or rash. HEME/LYMPH: No tender or swollen lymph nodes in underarms or neck or groin. PHYSICAL EXAMINATION: GENERAL: Oriented, cooperative. VITAL SIGNS: Blood pressure 140/70, pulse 80, respirations 20, afebrile. HEAD, EYES, EARS, NOSE, and THROAT: Pupils are equal and round, with an implant on the left. Sclerae are white. Tympanic membranes are clear. Extraocular movements are intact. Nose is clear. No oral lesions. NECK: No jugular venous distention, adenopathy, or thyromegaly. CHEST: Clear to auscultation and percussion. HEART: Regular rate and rhythm without murmurs or gallops. ABDOMEN: Soft. Bowel sounds are normal. No hepatosplenomegaly. No mass. No rebound. EXTREMITIES: No cyanosis or clubbing. She does have 1 to 2+ edema bilaterally. SKIN: Warm and dry without bruises or rash. PULSES: Carotid, radial, and femoral pulses intact. Pedal pulses diminished due to edema. HEME/LYMPH: No tender or swollen lymph nodes in axilla, inguinal, or cervical area. NEUROLOGICAL: Cranial nerves 2 through 12 grossly intact. Moves all extremities. DIAGNOSTIC STUDIES: EKG reviewed personally. Regular sinus rhythm without acute ST-T abnormality. LABORATORY DATA: CBC, basic metabolic profile, COVID, and protime all within normal limits, unremarkable. ADMITTING DIAGNOSES: 1. Back pain. 2. Postop revision of previous L-spine surgery with hardware removal and packing of . 3. Coronary artery disease. 4. Hypertension. ASSESSMENT: Stable postop. Agree with current management. We will follow with you during the hospital stay. This consultation was to Dr. Mirza Kwon. Job ID: [id number]
[2020-04-05] MEDS ORDERED: Melatonin 3 MG TAB PO PRN (20:01)
[2020-04-05] MEDS: Lisinopril 20 MG TAB PO SCH (20:19)
[2020-04-05] MEDS: Pregabalin 50 MG CAP PO SCH (20:19)
[2020-04-05] MEDS ORDERED: Acetaminophen 500 MG TAB PO PRN (21:44)
[2020-04-05] MEDS: Mag-Al 1200 mg/1200 mg/30 ML UDCUP PO PRN (22:52)
[2020-04-06] MEDS: Sodium Chloride 0.9% 1,000 ML IV SCH (01:42)
[2020-04-06 08:28] VITALS: BP 107/68; TEMP 98.1
[2020-04-06] MEDS ORDERED: Neomycin/Polymyxin/HC Otic Solution 10 ML BOT R EAR SCH (08:30)
[2020-04-06] MEDS: Mag-Al 1200 mg/1200 mg/30 ML UDCUP PO PRN (08:43)
[2020-04-06] MEDS: Pregabalin 50 MG CAP PO SCH (08:43)
[2020-04-06] MEDS: Lisinopril 20 MG TAB PO SCH (08:45)
--- NOTE | 2020-04-06 16:06 | DIS ---
DATE OF ADMISSION: 04/05/2020 DATE OF DISCHARGE: 04/06/2020 The patient is a 69-year-old female, known to us for L4-L5 fusion, who has had persistent right-sided radicular leg pain, gradually worsening since her surgery. Her myelogram revealed possible slightly lateral right L5 screw. Therefore, the patient underwent removal of hardware and revision of her lumbar fusion on 04/05/2020. Right-sided hardware was removed at that time. Left-sided hardware appeared appropriate and was left in place. Following the surgery, she was transitioned to the Med/Surg floor, where her pain was well controlled with p.o. medications, she was tolerating a regular diet, and she was voiding appropriately. We will plan to dismiss the patient to home. Dr. Bender discussed home care precautions. We will follow up with the patient in 2 weeks. HVAC SALES ENGINEER Pablo was checked prior to discharge. Job ID: [id number]
== END 2020-04-06 12:15 | disposition home or self-care (01) | DRG 460 ==
LOC: SDC 05:57 → SURG A 10:05
PROVIDERS: ADMIT Neurological Surgery; ATTEND Neurological Surgery
PROC: 0SP004Z Removal of Internal Fixation Device from Lumbar Vertebral Joint, Open Approach (ICD-10-PCS; principal; 2020-04-05)
PROC: 3E0U0GB Introduction of Recombinant Bone Morphogenetic Protein into Joints, Open Approach (ICD-10-PCS; 2020-04-05)
PROC: 0SG00K1 Fusion of Lumbar Vertebral Joint with Nonautologous Tissue Substitute, Posterior Approach, Posterior Column, Open Approach (ICD-10-PCS; 2020-04-05)
DX: T84.89XA Other specified complication of internal orthopedic prosthetic devices, implants and grafts, initial encounter (principal); M47.26 Other spondylosis with radiculopathy, lumbar region; I25.10 Atherosclerotic heart disease of native coronary artery without angina pectoris; I10 Essential (primary) hypertension; Z79.82 Long term (current) use of aspirin; Z98.42 Cataract extraction status, left eye; Z79.01 Long term (current) use of anticoagulants; Z79.899 Other long term (current) drug therapy; Z88.6 Allergy status to analgesic agent; Z88.8 Allergy status to other drugs, medicaments and biological substances
CPT/HCPCS: J0690; J1100; J2250; J2270; J2405; J2704; J3010; J3370; J3490

== ENCOUNTER 2020-04-22 10:35 | Outpatient (CLI) | payer MEDICARE, OTHER ==
--- NOTE | 2020-04-22 11:38 | RAD ---
EXAM: XR Lumbar Spine 2 Or 3 View PROVIDED CLINICAL HISTORY: Postop COMPARISON: 07/28/2019 FINDINGS: Right-sided pedicle screws at L4-5 are no longer evident. Lumbar alignment appears stable. Vertebral body heights appear preserved. Disc space height loss at L3-4 redemonstrated. Left-sided pedicle screws and vertical interconnecting fifi at L4-5 persist, without evidence for hardware loosening or m igration. Pedicles appear intact as visualized. Cutaneous catrina are seen overlying the midline. IMPRESSION: As above.
== END 2020-04-22 10:36 | disposition home or self-care (01) ==
LOC: TBSIIMAG 10:35
PROVIDERS: ATTEND Neurological Surgery
DX: M43.16 Spondylolisthesis, lumbar region (principal); Z98.890 Other specified postprocedural states
CPT/HCPCS: 72100